=== PATIENT | male | born 1950 | race Caucasian/White ===

== ENCOUNTER 2024-07-22 12:46 | Emergency (ER) | payer MEDICARE ==
[~2024-07-22] VITALS: Ht 182.9 cm; Wt 77.1 kg
[2024-07-22] MEDS ORDERED: ACETAMINOPHEN ES 500 MG TABLET ONE (13:38)
[2024-07-22] MEDS: ACETAMINOPHEN ES 500 MG TABLET PO ONE (13:46)
[2024-07-22] MEDS: LIDOCAINE HCL/PF 1% 30 ML VIAL TP ONE (15:25)
[2024-07-22] MEDS ORDERED: LIDOCAINE 1% INJ 50 ML MDV IJ ONE (16:36)
[2024-07-22 16:48] VITALS: BP 124/76; TEMP 97.9; O2SAT 99
== END 2024-07-22 16:49 | disposition home or self-care (01) ==
LOC: ER 12:49
DX: S01.81XA Laceration without foreign body of other part of head, initial encounter (principal); S81.811A Laceration without foreign body, right lower leg, initial encounter; G44.309 Post-traumatic headache, unspecified, not intractable; M54.2 Cervicalgia; Z85.828 Personal history of other malignant neoplasm of skin; W01.190A Fall on same level from slipping, tripping and stumbling with subsequent striking against furniture, initial encounter; Y93.89 Activity, other specified; Y92.89 Other specified places as the place of occurrence of the external cause; Y99.8 Other external cause status
CPT/HCPCS: 12016; 70450; 70486; 72125; 99285; A6403; J3490